=== PATIENT | male | born 1945 | race African-American/Black ===

== ENCOUNTER 2016-05-23 22:11 | Emergency (ER) | payer MEDICARE ==
[~2016-05-23] VITALS: Ht 165.1 cm; Wt 100.0 kg
[2016-05-24] MEDS ORDERED: KETOROLAC 60MG/2ML VIAL IM ONE (00:45)
[2016-05-24 01:06] VITALS: BP 144/86
== END 2016-05-24 01:13 | disposition home or self-care (01) ==
LOC: ER 22:11
DX: M25.552 Pain in left hip (principal); J45.909 Unspecified asthma, uncomplicated
CPT/HCPCS: 96372; 99283; J1885

== ENCOUNTER 2018-02-01 16:18 | Emergency (ER) | payer MEDICARE ==
[~2018-02-01] VITALS: Ht 165.1 cm; Wt 137.0 kg
[2018-02-01 18:15] LABS: BASOPHILS % 1.1 % (0.0-2.0); EOSINOPHILS % 1.4 % (0.0-5.0); HEMOGLOBIN. 13.7 g/dL (14.0-18.0); LYMPHOCYTES % 32.1 % (20.0-50.0); MEAN CORPUSCULAR HEMOGLOBIN 31.7 pg (28.0-32.0); MEAN CORPUSCULAR VOLUME 92.8 fL (80.0-94.0); MEAN PLATELET VOLUME 7.2 fl (7.4-10.4); MONOCYTES % 8.5 % (2.0-8.0); NEUTROPHILS % 56.9 % (40.0-76.0); PLATELET 276 x1000/uL (130-400); RED BLOOD CELL COUNT 4.31 mill/uL (4.7-6.1); RED CELL DISTRIBUTION WIDTH 12.8 % (11.6-14.6)
[2018-02-01] MEDS ORDERED: METHYLPREDNISOLONE SOD SUCC 125 MG/2 ML VIAL IV STA (18:20)
[2018-02-01] MEDS ORDERED: IPRATROPIUM BROMIDE (0.02%) 0.5MG/2.5ML NEB HHN STA (18:20)
[2018-02-01 18:28] LABS: CHLORIDE 105 mEq/L (98-107)
[2018-02-01] MEDS ORDERED: ALBUTEROL (0.083%) 2.5MG/3ML NEB HHN SCH (18:30)
[2018-02-01] MEDS ORDERED: NITROGLYCERIN OINT 1GM/INCH UDPKT TD ONE (18:30)
[2018-02-01] MEDS ORDERED: MORPHINE SULFATE 2 MG/ML CPJ (NOT FOR IM USE) IV ONE (18:30)
[2018-02-01] MEDS ORDERED: MORPHINE SULFATE 10 MG/ML CPJ IV NR (19:00)
[2018-02-01 19:23] LABS: D-DIMER 0.33 mg/L FEU (<0.50); PROTHROMBIN TIME 10.5 sec (9.1-11.1)
[2018-02-02] MEDS ORDERED: CLONIDINE 0.1MG TABLET PO PRN (01:00)
[2018-02-02] MEDS ORDERED: ACETAMINOPHEN 650MG/20.3ML UDC GT PRN (01:00)
[2018-02-02] MEDS ORDERED: ENOXAPARIN 40MG/0.4ML SYR SUBCUT SCH (01:00)
[2018-02-02] MEDS ORDERED: DOCUSATE SODIUM 100MG CAPSULE PO PRN (01:00)
[2018-02-02] MEDS ORDERED: MAGNESIUM/ALUMINUM HYDROXIDE/SIMETHICONE 30ML UDC PO PRN (01:00)
[2018-02-02] MEDS ORDERED: DIPHENHYDRAMINE 50MG/ML VIAL IV PRN (01:00)
[2018-02-02] MEDS ORDERED: ONDANSETRON HCL 4MG/2ML INJ IV PRN (01:00)
[2018-02-02] MEDS ORDERED: IPRATROPIUM/ALBUTEROL 0.5-3(2.5)MG/3ML NEB INH SCH (01:00)
[2018-02-02] MEDS ORDERED: IPRATROPIUM/ALBUTEROL 0.5-3(2.5)MG/3ML NEB INH PRN (01:00)
[2018-02-02] MEDS ORDERED: NA PHOS,M-B/NA PHOS,DI-BA ENEMA 118ML PR PRN (01:00)
[2018-02-02] MEDS ORDERED: ACETAMINOPHEN 650MG SUPP PR PRN (01:00)
[2018-02-02] MEDS ORDERED: GUAIFENESIN 200MG/10ML SUGAR FREE UDC PO PRN (01:00)
[2018-02-02] MEDS ORDERED: HYDROCODONE/ACETAMINOPHEN 10/325MG TABLET PO PRN (01:00)
[2018-02-02] MEDS ORDERED: HYDROCODONE/ACETAMINOPHEN 5/325MG TABLET PO PRN (01:00)
[2018-02-02] MEDS ORDERED: ACETAMINOPHEN 325MG TABLET PO PRN (01:00)
[2018-02-02] MEDS ORDERED: SODIUM CHLORIDE 0.9% INJ 3ML FLUSH IVF SCH (06:00)
[2018-02-02] MEDS ORDERED: METHYLPREDNISOLONE SOD SUCC 125 MG/2 ML VIAL IV SCH (06:30)
[2018-02-02 06:41] LABS: CREATINE KINASE 126 IU/L (39-308)
[2018-02-02 06:42] LABS: CREATINE KINASE MB FRACTION 1.7 ng/mL (0.5-3.6)
[2018-02-02 07:40] VITALS: BP 142/81
== END 2018-02-02 07:54 | disposition left against medical advice (07) ==
LOC: ER 16:18 → EDBEDREQTM 19:42 → EDBEDREQ 19:42 → EDBEDREQTM 20:13 → EDBEDREQ 20:13 → CANRESERV 02-02 07:09 → ENRESERV 02-02 07:09 → ER 02-02 07:54 → CANBEDREQ 02-02 08:15
DX: J45.901 Unspecified asthma with (acute) exacerbation (principal); E11.9 Type 2 diabetes mellitus without complications
CPT/HCPCS: 36415; 71045; 80053; 82550; 82553; 83605; 83880; 84484; 85025; 85379; 85610; 93005; 94640; 96374; 96375; 99284; J2270; J2930; 99285; J7611

== ENCOUNTER 2022-03-04 13:01 | Inpatient (IN) | payer OTHER, MEDICAID ==
[~2022-03-04] VITALS: Ht 175.3 cm; Wt 76.2 kg
[2022-03-04] MEDS ORDERED: KETOROLAC 30MG/ML VIAL IV STA (14:19)
[2022-03-04] MEDS ORDERED: KETOROLAC 15MG/ML VIAL IV NR (14:19)
[2022-03-04] MEDS ORDERED: SODIUM CHLORIDE 0.9% 1,000 ML IV ONE (14:30)
[2022-03-04 15:37] LABS: CLARITY URINE CLEAR (CLEAR); COLOR URINE YELLOW (YELLOW); KETONES URINE TRACE (NEGATIVE); LEUKOCYTE ESTERASE URINE 1+ (NEGATIVE); NITRITE URINE NEGATIVE (NEGATIVE); OCCULT BLOOD URINE NEGATIVE (NEGATIVE); PH URINE 5.5 (4.5-8.0); PROTEIN URINE NEGATIVE (NEGATIVE); SPECIFIC GRAVITY URINE 1.019 (1.005-1.030)
[2022-03-04 16:20] LABS: BASOPHILS % 0.9 % (0.0-2.0); EOSINOPHILS % 0.5 % (0.0-5.0); HEMATOCRIT. 41.6 % (42.0-52.0); HEMOGLOBIN. 14.4 g/dL (14.0-18.0); LYMPHOCYTES % 14.9 % (20.0-50.0); MEAN CORPUSCULAR HEMOGLOBIN 32.1 pg (28.0-32.0); MEAN CORPUSCULAR VOLUME 92.5 fL (80.0-94.0); MEAN PLATELET VOLUME 6.4 fl (7.4-10.4); MONOCYTES % 8.1 % (2.0-8.0); NEUTROPHILS % 75.6 % (40.0-76.0); PLATELET 379 x1000/uL (130-400); RED CELL DISTRIBUTION WIDTH 13.8 % (11.6-14.6)
[2022-03-04 16:25] LABS: CHLORIDE 100 mEq/L (98-107)
[2022-03-04 16:28] LABS: PROTHROMBIN TIME 10.9 sec (9.6-11.0)
[2022-03-04] MEDS ORDERED: VANCOMYCIN 1G PREMIX 200 ML IV STA (16:38)
[2022-03-04] MEDS ORDERED: ACETAMINOPHEN 650MG/20.3ML UDC NG ONE (17:30)
[2022-03-04] MEDS ORDERED: IOHEXOL-300 100 ML BOTTLE ONE (19:31)
[2022-03-05] MEDS ORDERED: ONDANSETRON HCL 4MG/2ML INJ IV PRN (09:30)
[2022-03-05] MEDS ORDERED: CLONIDINE 0.1MG TABLET PO PRN (09:30)
[2022-03-05] MEDS ORDERED: ACETAMINOPHEN 325MG TABLET PO PRN (09:30)
[2022-03-05] MEDS ORDERED: MAGNESIUM/ALUMINUM HYDROXIDE/SIMETHICONE 30ML UDC PO PRN (09:30)
[2022-03-05] MEDS ORDERED: DOCUSATE SODIUM 100MG CAPSULE PO PRN (09:30)
[2022-03-05] MEDS ORDERED: CEFTRIAXONE 1 G PREMIX 50 ML IV SCH (10:00)
[2022-03-05] MEDS: ENOXAPARIN 40MG/0.4ML SYR SUBCUT SCH (10:27)
[2022-03-05 11:45] LABS: PHOSPHORUS 2.5 mg/dL (2.5-4.9)
[2022-03-05] MEDS: CLINDAMYCIN 600MG PREMIX 50 ML IV SCH ×2 (12:59→13:14)
[2022-03-05 15:38] LABS: CREATINE KINASE 238 IU/L (39-308)
[2022-03-05 20:00] VITALS: BP 139/72
[2022-03-05 22:39] VITALS: BP 139/72
[2022-03-05] MEDS ORDERED: ASPI-1497 PO (23:14)
[2022-03-05] MEDS ORDERED: METO-385 PO (23:14)
[2022-03-05] MEDS ORDERED: METF-873 PO (23:14)
[2022-03-05] MEDS ORDERED: MONT4TAB20 PO (23:14)
[2022-03-05] MEDS ORDERED: LISI2.5T47 PO (23:14)
[2022-03-06] VITALS: BP 114/56
[2022-03-06 00:26] LABS: CREATINE KINASE 204 IU/L (39-308)
[2022-03-06 04:00] VITALS: BP 121/62
[2022-03-06 07:04] LABS: BASOPHILS % 1.5 % (0.0-2.0); EOSINOPHILS % 2.5 % (0.0-5.0); HEMATOCRIT. 39.1 % (42.0-52.0); HEMOGLOBIN. 13.7 g/dL (14.0-18.0); LYMPHOCYTES % 18.9 % (20.0-50.0); MEAN CORPUSCULAR HEMOGLOBIN 31.9 pg (28.0-32.0); MEAN CORPUSCULAR VOLUME 91.3 fL (80.0-94.0); MEAN PLATELET VOLUME 6.6 fl (7.4-10.4); MONOCYTES % 11.5 % (2.0-8.0); NEUTROPHILS % 65.6 % (40.0-76.0); PLATELET 339 x1000/uL (130-400); RED BLOOD CELL COUNT 4.28 mill/uL (4.7-6.1); RED CELL DISTRIBUTION WIDTH 13.4 % (11.6-14.6)
[2022-03-06 08:00] VITALS: BP 123/66
[2022-03-06 08:16] LABS: CHLORIDE 101 mEq/L (98-107); T4 FREE 1.28 ng/dL (0.76-1.46)
[2022-03-06] MEDS: ENOXAPARIN 40MG/0.4ML SYR SUBCUT SCH (11:20)
[2022-03-06 12:00] VITALS: BP 111/59
[2022-03-06] MEDS ORDERED: CEFTRIAXONE 1,000 MG in DEXTROSE 5% WATER 50 ML IV SCH (12:30)
[2022-03-06] MEDS ORDERED: CIPR-263 MT (14:01)
[2022-03-06 15:58] VITALS: BP 116/65
[2022-03-06 16:04] VITALS: BP 116/65
== END 2022-03-06 16:18 | disposition home health service (06) | DRG 728 ==
LOC: ER 13:11 → 6EST 19:14 → EDBEDREQTM 19:22 → EDBEDREQ 19:22 → EDBEDREQSVC 19:22 → ENRESERV 03-05 19:32
PROVIDERS: ADMIT Internal Medicine; ATTEND Internal Medicine
DX: N49.2 Inflammatory disorders of scrotum (principal); N39.0 Urinary tract infection, site not specified; I25.10 Atherosclerotic heart disease of native coronary artery without angina pectoris; J45.909 Unspecified asthma, uncomplicated; E11.9 Type 2 diabetes mellitus without complications; E87.5 Hyperkalemia; N40.1 Benign prostatic hyperplasia with lower urinary tract symptoms; K57.30 Diverticulosis of large intestine without perforation or abscess without bleeding; K80.20 Calculus of gallbladder without cholecystitis without obstruction; I10 Essential (primary) hypertension; L72.0 Epidermal cyst; I25.2 Old myocardial infarction; Z79.84 Long term (current) use of oral hypoglycemic drugs; Z79.899 Other long term (current) drug therapy; Z87.891 Personal history of nicotine dependence; N43.3 Hydrocele, unspecified
CPT/HCPCS: 36415; 74177; 76870; 80053; 81003; 82550; 83605; 83735; 84100; 84145; 84439; 84443; 84484; 85025; 93306; 93976; 96361; 96367; 96375; 99285; J0696; J1650; J1885; J3370; J3490; J7030; J7060; Q9967